=== PATIENT | female | born 1940 | race Caucasian/White ===

== ENCOUNTER → 2016-04-21 | Outpatient (CLI) | payer OTHER ==
[~2016-04-21] VITALS: Ht 165.1 cm; Wt 73.9 kg
[~2016-04-21] MED LIST: ATIVAN0.5 MG PO; COZAAR 25 MG TA25 M1 PO; FENOFIBRATE160 MG PO; HYDROCODONE-APA1 TA1 PO; LEVOTHYROXINE 0.1 MG PO; METFORMIN HCL500 MG PO; PRILOSEC 20 MG20 MG PO; TRESIBA FL100 UNIT/1 SUBQ
--- NOTE | ~2016-04-21 | P ---
[facility] [place] [address] PROCEDURE REPORT Name: JENNIFEREMILIO Pinky Room #: REG [facility]#: [id number] Admission: 04/21/16 Attend Phys: Tyrese Celis Discharge: Date of : 42 Report #: [id number] THIS REPORT FOR: //name// CC: Tyrese Santana [facility] physician/PCP DATE OF SERVICE: 04/21/2016 PROCEDURE PERFORMED: Colonoscopy with biopsies. HISTORY OF PRESENT ILLNESS: The patient is a 75-year-old female with previous history of recurrent diverticulitis, status post sigmoid resection years ago. She has a history of colon polyps as well. She is here for routine followup, although she does report some intermittent left-sided abdominal pain. At times, she also complains of some constipation. She has tried MiraLax in the past without much improvement. She is actually on medication at this time, which has been helpful. No family history of colon cancer. DESCRIPTION OF PROCEDURE: The risks and benefits of the procedure were explained to the patient, those risks including but not limited to bleeding, perforation, the risk of sedation. She understood these risks and gave informed consent. Sedation was given using propofol per anesthesia. Next, a digital rectal exam was initially performed, which was normal. Next, using a standard Fujinon colonoscope, the scope was placed in the patient's anus and advanced under direct vision to the cecum. The overall prep was good. The cecum and ileocecal valve were normal in appearance. In the ascending colon, there was a 3 mm sessile polyp. This was removed with cold forceps, otherwise normal. In the transverse colon, a 4 mm sessile polyp also removed with cold forceps. Descending colon, 3 mm sessile polyp removed with cold forceps. In the distal descending and remaining sigmoid colon, a few small diverticula were noted. There was no evidence of inflammation. The surgical anastomosis in the rectosigmoid junction was well healed and widely patent. The rectal mucosa was normal. On retroflexion, no abnormalities were noted. The scope was then withdrawn and the procedure terminated. The patient tolerated the procedure well. IMPRESSION: 1. Three small colonic polyps. 2. A few left-sided diverticula. 3. Otherwise, normal colonoscopy. RECOMMENDATIONS: Await biopsy results. [address] [address] PROCEDURE REPORT Name: EMILIO RODRIGUEZ [id number] Admission: 04/21/16 Attend Phys: Tyrese Celis Discharge: Date of : 42 Report #: [id number] Thank you for allowing me to participate in her care. <ELECTRONICALLY SIGNED> By: Tyrese Santana MD 04/21/16 1111 [id number] Tyrese Santana MD /nt
--- NOTE | ~2016-04-21 | P ---
[facility] [place] [address] PROCEDURE REPORT Name: EMILIO RODRIGUEZ Pinky Room #: REG [facility]#: [id number] Admission: 04/21/16 Attend Phys: Tyrese Celis Discharge: Date of : 42 Report #: [id number] THIS REPORT FOR: //name// CC: Tyrese Santana [facility] physician/PCP DATE OF SERVICE: 04/21/2016 PRIMARY CARE PHYSICIAN: She has no primary. PROCEDURE PERFORMED: Upper endoscopy with biopsies. HISTORY OF PRESENT ILLNESS: The patient is a 75-year-old female with a history of gastroesophageal reflux disease. Previous upper endoscopy several years ago showed a mild thickening of the mucosa in the second portion of the duodenum. Biopsies at that time showed tubular adenoma. This tissue was removed. The previous polypectomy site was biopsied and it did show some tubular adenomatous changes. She was recommended to have a repeat upper endoscopy in 2 years. She now presents today for colonoscopy. Plan is for EGD and colonoscopy. DESCRIPTION OF PROCEDURE: The risks and benefits of the procedure were explained to the patient, those risks including but not limited to bleeding, perforation and the risk of sedation. She understood these risks and gave informed consent. Sedation was given using propofol per anesthesia. Next, using a standard [employer] upper endoscope, the scope was placed in the patient's mouth and advanced under direct vision through the esophagus, stomach and into the second portion of the duodenum. The esophagus was normal throughout. The GE junction was normal. Upon entering the stomach, a small hiatal hernia was noted. Overall, the gastric mucosa was normal. The pylorus was normal and patent. The duodenal bulb and first portion were normal. In the second portion, the previous scarring from polypectomy site was noted. There was a tiny, 2 mm area of likely adenomatous change. This was removed with cold forceps, but otherwise normal. I then advanced the scope into the third portion of the duodenum, which was normal. The scope was then withdrawn and the procedure terminated and the patient tolerated the procedure well. IMPRESSION: 1. Biopsy of previous adenomatous tissue in the second portion of the duodenum, as described above. 2. Small hiatal hernia. 3. Otherwise, normal upper endoscopy. RECOMMENDATIONS: 1. Await biopsy results. 2. Continue PPI therapy. [address] [address] PROCEDURE REPORT Name: JENNIFEREMILIO L Room #: REG [facility] Phillip#: [id number] Admission: 04/21/16 Attend Phys: Tyrese Celis Discharge: Date of : 42 Report #: [id number] Thank you for allowing me to participate in her care. <ELECTRONICALLY SIGNED> By: Tyrese Santana MD 04/21/16 1111 [id number] Tyrese Santana MD /nt
--- NOTE | ~2016-04-21 | S ---
[facility] [place] [address] SURGICAL PATH RPT PROCEDURE Name: EMILIO RODRIGUEZ [id number] Admission: 04/21/16 Date of : 42 Discharge: Report #: [id number] Path Case #: [id number] PATHOLOGY REPORT COLLECTION DATE: 04/21/2016 RECEIVED DATE: 04/22/2016 SUBMITTING PHYS: Dr. Tyrese Santana OTHER PHYS: SPECIMEN(S) RECEIVED: A.Bx of duodenum B.Polyp at ascending colon C.Polyp at transverse colon D.Polyp at descending colon * * * * * * * * * * * * FINAL DIAGNOSIS: A. Small bowel, duodenum, endoscopic biopsy: - Minute fragment showing residual tubular adenoma; negative for high-grade dysplasia. - Remainder of fragments showing no diagnostic abnormalities. B. Polyps, at ascending colon, endoscopic biopsy: - Hyperplastic polyps. - Negative for dysplasia. C. Polyp, at transverse colon, endoscopic biopsy: - One fragment showing tubular adenoma without high-grade dysplasia. - One fragment showing hyperplastic polyp without dysplasia. D. Polyp, at descending colon, endoscopic biopsy: - Minute tubular adenoma. - Negative for high-grade dysplasia. (IUV:mgr; d/t: 04/23/16) COMMENT: [facility] (part A only): Dr. Heather Cid. PATHOLOGIST: Jessica Covington M.D. REPORT ELECTRONICALLY SIGNED BY: Jessica Covington M.D. DATE/TIME: 04/23/2016 12:18 * * * * * * * * * * * * GROSS PATHOLOGY: A. Received in formalin labeled "Emilio Rodriguez, biopsy of duodenum," are three segments of calvin soft tissue measuring 0.7 x 0.6 x 0.1 cm in aggregate dimensions and ranging from 0.2 to 0.6 cm in maximum dimension. The specimen is submitted entirely in cassette A1. B. Received in formalin labeled "Emilio Rodriguez, polyp at ascending [address] [address] SURGICAL PATH RPT PROCEDURE Name: JENNIFER,EMILIO Vance Room #: REG [facility]#: [id number] Admission: 04/21/16 Date of : 42 Discharge: Report #: [id number] Path Case #: [id number] colon," is a segment of calvin soft tissue measuring 0.5 cm in maximum dimension. The specimen is submitted entirely in cassette B1. C. Received in formalin labeled "Emilio Rodriguez, polyp at transverse colon," are five segments of calvin soft tissue measuring 1.0 x 0.8 x 0.1 cm in aggregate dimensions and ranging from 0.2 to 0.5 cm in maximum dimension. The specimen is submitted entirely in cassette C1. D. Received in formalin labeled "Emilio Rodriguez, polyp at descending colon," is a segment of calvin soft tissue measuring 0.7 cm in maximum dimension. The specimen is submitted entirely in cassette D1. (CAA; 04/22/2016) CLINICAL HISTORY: Previous mucosal adenomatous INITIAL CPT CODE(S): A; 61969 B; 95380 C; 55167 D; 30637 Professional services performed by [facility] at [facility] [address] [place] [address] Technical services performed by [facility] at [address] [place] [address], [address], [place] [address]. [facility] [address] [place] [address] PHONE: [phone] DIRECTOR: Berto Nielsen M.D. * * * END OF REPORT * * *
== END | disposition home or self-care (01) ==
LOC: GI 02:07
DX: D12.4 Benign neoplasm of descending colon (principal); D13.2 Benign neoplasm of duodenum; D12.3 Benign neoplasm of transverse colon; K63.5 Polyp of colon; K57.90 Diverticulosis of intestine, part unspecified, without perforation or abscess without bleeding; K21.9 Gastro-esophageal reflux disease without esophagitis; K44.9 Diaphragmatic hernia without obstruction or gangrene
CPT/HCPCS: 62110

== ENCOUNTER → 2020-08-15 | Outpatient (CLI) | payer OTHER | LOC: SJCVC 10:50 | PROVIDERS: ATTEND Internal Medicine Cardiovascular Disease | DX: E11.9 Type 2 diabetes mellitus without complications (principal); I10 Essential (primary) hypertension; E78.00 Pure hypercholesterolemia, unspecified; R06.02 Shortness of breath; R53.83 Other fatigue; E78.5 Hyperlipidemia, unspecified; E03.9 Hypothyroidism, unspecified; F41.9 Anxiety disorder, unspecified; Z72.89 Other problems related to lifestyle; Z79.4 Long term (current) use of insulin; Z79.899 Other long term (current) drug therapy; Z88.8 Allergy status to other drugs, medicaments and biological substances ==

== ENCOUNTER → 2020-09-26 | Outpatient (CLI) | payer OTHER | LOC: SJCVCIMAG 07:51 | PROVIDERS: ATTEND Internal Medicine Cardiovascular Disease | DX: I49.3 Ventricular premature depolarization (principal); R06.00 Dyspnea, unspecified; I11.9 Hypertensive heart disease without heart failure; E11.9 Type 2 diabetes mellitus without complications; R53.83 Other fatigue; Z79.4 Long term (current) use of insulin; Z79.899 Other long term (current) drug therapy; Z88.8 Allergy status to other drugs, medicaments and biological substances ==